=== PATIENT | female | born 1995 | race Caucasian/White ===

== ENCOUNTER 2019-01-20 11:26 | Emergency (ER) | payer OTHER ==
[2019-01-20 11:44] VITALS: RESP 16; TEMP 96.9
[2019-01-20 12:44] VITALS: BP 144/101; PULSE 117; O2SAT 97
== END 2019-01-20 12:40 | disposition home or self-care (01) | DRG 833 ==
LOC: ED 11:26
DX: O26.892 Other specified pregnancy related conditions, second trimester (principal); Z3A.26 26 weeks gestation of pregnancy
CPT/HCPCS: 59025; 84112; 99283

== ENCOUNTER 2019-04-29 04:20 | Inpatient (IN) | payer OTHER ==
[2019-04-29] MEDS ORDERED: METHYLERGONOVINE MALEATE 0.2 MG/ML SOL IM PRN (04:46)
[2019-04-29] MEDS ORDERED: FENTANYL 100MCG/2ML SOL IV PRN (04:46)
[2019-04-29] MEDS ORDERED: CARBOPROST 250 MCG/ML SOL IM PRN (04:46)
[2019-04-29] MEDS ORDERED: SODIUM CHLORIDE 0.9% FLUSH 10 ML SOL IV PRN (04:46)
[2019-04-29] MEDS ORDERED: OXYTOCIN 10000 MU/ML SOL IM PRN (04:46)
[2019-04-29] MEDS ORDERED: MEPIVACAINE HCL 1% MPF 30 ML/VIAL SOL INFIL PRN (04:46)
[2019-04-29 06:32] LABS: BASOPHILS % (AUTO) 1 % (0-3); EOSINOPHILS % (AUTO) 1 % (0-9); HEMATOCRIT 44 % (35-47); HEMOGLOBIN 14.5 gm/dl (12.0-15.5); LYMPHOCYTES % (AUTO) 12.4 % (10-50); MEAN CORPUSCULAR HEMOGLOBIN 33.7 pg (27.0-32.0); MEAN CORPUSCULAR HGB CONC 33.4 gm/dl (32.0-36.0); MEAN CORPUSCULAR VOLUME 101 fL (81-99); MONOCYTES % (AUTO) 5.5 % (0-12); NEUTROPHILS % (AUTO) 80.8 % (37-80)
[2019-04-29] MEDS: LACTATED RINGERS 1,000 ML IV PRN ×2 (09:52→12:56)
[2019-04-29] MEDS: SODIUM CHLORIDE 0.9% FLUSH 10 ML SOL IV SCH (09:53)
[2019-04-29] MEDS ORDERED: EPHEDRINE SULFATE 50 MG/ML SOL IV PRN (12:54)
[2019-04-29] MEDS ORDERED: DIPHENHYDRAMINE 50 MG/ML SOL IV PRN (12:54)
[2019-04-29] MEDS ORDERED: NALOXONE HYDROCHLORIDE 0.4 MG/ML SOL IV PRN (12:54)
[2019-04-29] MEDS ORDERED: NALBUPHINE HCL 20 MG/ML SOL IV PRN (12:54)
[2019-04-29] MEDS: LACTATED RINGERS 1,000 ML IV SCH ×5 (13:00→18:18)
[2019-04-29] MEDS ORDERED: LIDOCAINE 1% W/EPI MPF 30 ML SOL ONE (13:20)
[2019-04-29] MEDS ORDERED: LIDOCAINE HCL 2% MPF 10 ML SOL ONE (13:20)
[2019-04-29] MEDS ORDERED: BENZOCAINE/MENTHOL 1 SPR TOP PRN (20:43)
[2019-04-29] MEDS ORDERED: TEMAZEPAM 15MG 15 MG CAP PO PRN (20:43)
[2019-04-29] MEDS ORDERED: BISACODYL 10 MG SUP PR PRN (20:43)
[2019-04-29] MEDS ORDERED: FLEET ENEMA PR PRN (20:43)
[2019-04-29] MEDS ORDERED: METHYLERGONOVINE MALEATE 0.2 MG TAB PO PRN (20:43)
[2019-04-29] MEDS ORDERED: WITCH HAZEL 1 EA PAD TOP PRN (20:43)
[2019-04-29] MEDS ORDERED: LACTATED RINGERS 500 ML IV ONE (21:18)
[2019-04-29] MEDS: APAP/HYDROCODONE 1 EACH TABLET PO PRN (22:30)
[2019-04-29] MEDS: IBUPROFEN 600 MG TAB PO PRN (22:30)
[2019-04-29] MEDS ORDERED: SODIUM CHLORIDE 0.9% 1000ML 1,000 ML IV ONE (22:55)
[2019-04-29] MEDS ORDERED: MISOPROSTOL 100 MCG TAB PR PRN (23:37)
[2019-04-29] MEDS ORDERED: MISOPROSTOL 100 MCG TAB ONE (23:44)
[2019-04-30] MEDS: DOCUSATE SODIUM 100 MG SGL PO SCH ×3 (00:07→20:56)
[2019-04-30] MEDS: SODIUM CHLORIDE 0.9% FLUSH 10 ML SOL IV SCH ×5 (02:23→21:00)
[2019-04-30] MEDS: IBUPROFEN 600 MG TAB PO PRN ×2 (07:41→16:43)
[2019-04-30] MEDS: FERROUS GLUCONATE 324 MG TABLET PO SCH (08:29)
[2019-04-30] MEDS: APAP/HYDROCODONE 1 EACH TABLET PO PRN ×2 (12:39→13:45)
[2019-04-30 15:06] LABS: ABO A; RH TYPE Negative
[2019-05-01] MEDS: IBUPROFEN 600 MG TAB PO PRN ×2 (03:55→10:26)
[2019-05-01] MEDS: SODIUM CHLORIDE 0.9% FLUSH 10 ML SOL IV SCH ×2 (03:56→04:32)
[2019-05-01] MEDS: DOCUSATE SODIUM 100 MG SGL PO SCH (08:44)
[2019-05-01] MEDS: FERROUS GLUCONATE 324 MG TABLET PO SCH (08:44)
[2019-05-01] MEDS ORDERED: MULTIVITAMIN2 1 EA TAB PO SCH (09:00)
[2019-05-01] MEDS ORDERED: FOLIC ACID 1 MG TAB PO SCH (09:00)
[2019-05-01 15:35] VITALS: BP 133/79; PULSE 118; RESP 14; TEMP 97.9; O2SAT 96
== END 2019-05-01 15:45 | disposition home or self-care (01) | DRG 807 ==
LOC: OB 04:20 → UNDOADMOB 04:20 → OBSVTOIN 04:20
PROVIDERS: ADMIT Family Medicine; ATTEND Family Medicine
PROC: 10E0XZZ Delivery of Products of Conception, External Approach (ICD-10-PCS; principal; 2019-04-29)
PROC: 0KQM0ZZ Repair Perineum Muscle, Open Approach (ICD-10-PCS; 2019-04-29)
PROC: 10907ZC Drainage of Amniotic Fluid, Therapeutic from Products of Conception, Via Natural or Artificial Opening (ICD-10-PCS; 2019-04-29)
PROC: 6A550ZT Pheresis of Cord Blood Stem Cells, Single (ICD-10-PCS; 2019-04-29)
DX: O80 Encounter for full-term uncomplicated delivery (principal); Z37.0 Single live birth; Z3A.40 40 weeks gestation of pregnancy; O26.899 Other specified pregnancy related conditions, unspecified trimester; Z67.91 Unspecified blood type, Rh negative; O72.2 Delayed and secondary postpartum hemorrhage; O90.81 Anemia of the puerperium; R06.02 Shortness of breath
CPT/HCPCS: 36415; 59025; 85018; 85025; 86900; 86901; 94762; J0670; J2210; J2590; J3010; A9270-GY